=== PATIENT | female | born 1995 | race Caucasian/White ===

== ENCOUNTER 2018-01-19 07:41 | Emergency (ER) | payer OTHER ==
[2018-01-19 07:48] VITALS: BP 112/78
[2018-01-19] MEDS ORDERED: KETOROLAC 30 MG/1 ML SDV IM ONE (08:14)
--- NOTE | 2018-01-19 08:14 | EDPHY ---
HPI/HX/ROS/PE/MDM Narrative: CHIEF COMPLAINT: "I have a lot of stiffness in my neck" HPI: The patient is a 22 y/o female arriving with her friend complaining of neck stiffness onset acutely at midnight, 8 hours ago. She sat down in the car, turned her head, and then felt sudden pain in the base and along the lateral aspects of her neck. She describes the sensation of "tenseness." She has slightly more range of motion to the right than when turning to the left. She denies any preceding trauma or notable heavy lifting, though she does work at the [employer] and lifts boxes daily. No associated numbness or weakness, fever, nausea, myalgias, abdominal pain, vomiting, or diarrhea. Her pain improves with massage and she has had slight improvement after 400mg ibuprofen this morning. She denies any recent binge drinking, illicit drug use. She is generally healthy. REVIEW OF SYSTEMS: A comprehensive 10 system review of systems is otherwise negative aside from elements mentioned in the history of present illness. PMH: Denies SOCIAL HISTORY: Smokes marijuana. Friend at bedside. Employed. PHYSICAL EXAM: General:Patient is alert, in no acute distress. ENT:Eyes are normal to inspection. ENT inspection normal. Neck: Slightly limited ROM to the left, otherwise normal inspection. No tenderness. Full range of motion. Respiratory:No respiratory distress. Breath sounds normal bilaterally. Cardiovascular: Regular rate and rhythm. Strong peripheral pulses. Normal cap refill. Abdomen:The abdomen is nontender to palpation. There are no peritoneal signs. Back: Normal to inspection. No tenderness to palpation. Skin: Normal color. No rash. Warm and dry. Extremities: Normal appearance. Full range of motion. Neuro: Oriented x3. Normal motor function. Normal sensory function. No pronator drift. ED Course: This is a healthy 22 y/o female who presents with an 8-hour history of acute onset neck stiffness. Her ROM is mildly limited when turning her head to the left, but she has no tenderness nor any signs of systemic illness. She is neurovascularly intact. Doubt infectious cause or spinal etiology. I suspect this is most likely a muscular spasm or cervical sprain. No indication for imaging at this time. Plan for symptomatic treatment with 30mg IM Toradol here and discharged with script for Flexeril and standard care and follow up instructions. Return precautions discussed. She is comfortable with this plan. General Time Seen by Provider: 10/13/18 07:52 Initial Vital Signs: Initial Vital Signs Temperature (C) 36.6 C 01/19/18 07:46 Heart Rate 74 01/19/18 07:46 Respiratory Rate 16 01/19/18 07:46 Blood Pressure 112/78 01/19/18 07:46 O2 Sat (%) 98 01/19/18 07:46 O2 Delivery Mode Room Air Allergies/Adverse Reactions: No Known Allergies Allergy (Verified 01/19/18 07:44) Home Medications: Medication Instructions Recorded Control Pills 12/15/15 Cyclobenzaprine [Flexeril 10 MG 10 mg PO TID PRN #10 tab 01/19/18 (*)] Departure - Departure Disposition: Home, Routine, Self-Care Clinical Impression: Cervical sprain Qualifiers: Encounter type: initial encounter Qualified Code(s): S13.9XXA - Sprain of joints and ligaments of unspecified parts of neck, initial encounter Condition: Good Instructions: Cyclobenzaprine (By mouth), Cervical Sprain (ED) Additional Instructions: 1. Take Flexeril as prescribed for muscle spasm over the next 1-2 days. This medication can make you drowsy. Do not use prior to driving. 2. Take 600mg ibuprofen every 8 hours for pain and inflammation over the next few days. You received a shot of a similar medication while in the ED today, so you should wait until tonight before taking another dose of this. 3. Return to the ED for severe pain, if you develop associated fever or other signs of illness, or other worsening of condition. Referrals: GABRIELA MALAGON [Other] - As per Instructions Prescriptions: Cyclobenzaprine [Flexeril 10 MG (*)] 10 mg PO TID PRN #10 tab PRN Reason: Spasms Report Scribed for: Phoenix Condon Report Scribed by: Katherine Duran Date of Report: 01/19/18 Time of Report: 08:14 Physician Review and Approval Statement: Portions of this note were transcribed by an ED scribe. I personally performed the history, physical exam, and medical decision making; and confirm the accuracy of the information in the transcribed note.
== END 2018-01-19 08:36 | disposition home or self-care (01) ==
DX: S13.9XXA Sprain of joints and ligaments of unspecified parts of neck, initial encounter (principal); X50.0XXA Overexertion from strenuous movement or load, initial encounter; Y92.810 Car as the place of occurrence of the external cause; Y99.8 Other external cause status
CPT/HCPCS: J1885

== ENCOUNTER 2018-04-13 20:22 | Emergency (ER) | payer OTHER ==
[2018-04-13] MEDS ORDERED: LORazepam 1 MG TAB PO ONE (20:58)
--- NOTE | 2018-04-13 21:12 | EDPHY ---
H & P Stated Complaint: c/o intermittent anxiety becoming more consistent x 2-3 wks Time Seen by Provider: 04/13/18 20:52 HPI/ROS: CHIEF COMPLAINT: Anxiety HISTORY OF PRESENT ILLNESS: Patient is a 22-year-old female who comes to the emergency department complaining of anxiety attacks. She states that she has an anxiety attack every morning and feels nauseous and cannot eat until about noon. She then typically feels better in the evenings. She does see a therapist but has not been prescribed any medications because she needs to be referred to a psychiatrist. She denies suicidality. She denies significant depressive feelings. She states that she called her Therapist today about worsening symptoms this evening and therapist recommended she come to the ER for treatment acutely. They are working on getting her a referral for more chronic management and preventative treatment. She denies having any pain or medical symptoms. Severity: Moderate Modifying factors: Some improvement with marijuana in the past but not working recently. REVIEW OF SYSTEMS: Constitutional: denies: chills, fever, recent illness, recent injury EENTM: denies: blurred vision, double vision, nose congestion Respiratory: denies: cough, shortness of breath Cardiac: denies: chest pain, irregular heart rate, lightheadedness, palpitations Gastrointestinal/Abdominal: denies: abdominal pain, diarrhea, nausea, vomiting, blood streaked stools Genitourinary: denies: dysuria, frequency, hematuria, pain Musculoskeletal: denies: joint pain, muscle pain Skin: denies: lesions, rash, jaundice, bruising Neurological: denies: headache, numbness, paresthesia, tingling, dizziness, weakness Hematologic/Lymphatic: denies: blood clots, easy bleeding, easy bruising Immunologic/allergic: denies: HIV/AIDS, transplant 10 systems reviewed and negative except as noted EXAM: GENERAL: Is, well-nourished and in no acute distress. HEAD: Atraumatic, normocephalic. EYES: Pupils equal round and reactive to light, extraocular movements intact, sclera anicteric, conjunctiva are normal. ENT: TMs normal, nares patent, oropharynx clear without exudates. Moist mucous membranes. NECK: Normal range of motion, supple without lymphadenopathy or JVD. LUNGS: Breath sounds clear to auscultation bilaterally and equal. No wheezes rales or rhonchi. HEART: Regular rate and rhythm without murmurs, rubs or gallops. ABDOMEN: Soft, nontender, normoactive bowel sounds. No guarding, no rebound. No masses appreciated. BACK: No CVA tenderness, no spinal tenderness, step-offs or deformities EXTREMITIES: Normal range of motion, no pitting or edema. No clubbing or cyanosis. NEUROLOGICAL: Cranial nerves II through XII grossly intact. Normal speech, normal gait. 5/5 strength, normal movement in all extremities, normal sensation , normal reflexes PSYCH: Anxious anxious, normal cognition SKIN: Warm, dry, normal turgor, no visible rashes or lesions. Source: Patient Exam Limitations: No limitations - Personal History Current Tetanus/Diphtheria Vaccine: Yes - Medical/Surgical History Hx Asthma: No Hx Chronic Respiratory Disease: No Hx Diabetes: No Hx Cardiac Disease: No Hx Renal Disease: No Hx Cirrhosis: No Hx Alcoholism: No Hx HIV/AIDS: No Hx Splenectomy or Spleen Trauma: No Other PMH: anxiety - Family History Significant Family History: No pertinent family hx - Social History Smoking Status: Current some day smoker Alcohol Use: Sober Drug Use: None Constitutional: Initial Vital Signs Temperature (C) 37 C 04/13/18 20:37 Heart Rate 90 04/13/18 20:37 Respiratory Rate 18 04/13/18 20:37 Blood Pressure 135/95 H 04/13/18 20:37 O2 Sat (%) 96 04/13/18 20:37 O2 Delivery Mode Room Air Allergies/Adverse Reactions: sulfamethizole Allergy (Verified 04/13/18 20:43) Home Medications: Medication Instructions Recorded Control Pills 12/15/15 LORazepam [Ativan 1 mg (RX)] 1 mg PO Q6-8PRN PRN #10 tab 04/13/18 Medical Decision Making ED Course/Re-evaluation: Patient comes here requesting medication for anxiety. We will try Ativan. She states this is what her mom suggested as well. She has an aversion to Xanax. She does not wish to have any medical workup. 10:00 p.m. the patient is feeling completely better after Ativan. She is eager to go home. Will give her prescription to take p.r.n. Until she can follow up with a prescriber. She reports that she has appointment on Sunday. Differential Diagnosis: Partial list of the Differential diagnosis considered include but were not limited to; anxiety, depression and although unlikely based on the history and physical exam, I also considered infection, arrhythmia, infection. I discussed these differential diagnoses and the plan with the patient as well as the usual and expected course. The patient understands that the diagnosis is provisional and that in medicine we are not always correct and that further workup is often warranted. Usual and customary warnings were given. All of the patient's questions were answered. The patient was instructed to return to the emergency department should the symptoms at all worsen or return, otherwise to followup with the physician as we discussed. - Data Points Medications Given: Discontinued Medications Lorazepam (Ativan) 2 mg PO EDNOW ONE Stop: 04/13/18 20:59 Last Admin: 04/13/18 21:00 Dose: 2 mg Departure - Departure Disposition: Home, Routine, Self-Care Clinical Impression: Anxiety Condition: Fair Instructions: Lorazepam (By mouth), Anxiety (ED) Additional Instructions: Follow-up with your doctor Sunday as planned. Referrals: NONE *PRIMARY CARE P,. [Primary Care Provider] - As per Instructions Prescriptions: LORazepam [Ativan 1 mg (RX)] 1 mg PO Q6-8PRN PRN #10 tab PRN Reason: *Anxiety/Agitation/Insomnia
[2018-04-13 22:12] VITALS: BP 141/89
== END 2018-04-13 22:10 | disposition home or self-care (01) ==
DX: F41.9 Anxiety disorder, unspecified (principal)